=== PATIENT | male | born 1960 | race Caucasian/White ===

== ENCOUNTER 2017-05-30 05:49 | Emergency (ER) | payer SELFPAY ==
[~2017-05-30] VITALS: Ht 175.3 cm; Wt 77.1 kg
[~2017-05-30 05:49] MED LIST: ANTOXYBENA BOTHEARS; AZIT250 PO; CEPH250A PO; CEPH500 PO; CLIN300 PO; CLOT1TC TOP; CYCL10 PO; DESV50 PO; HYDACE5 PO; HYDACE5325 PO; IBUHYD PO; LIDO5TP TOP; MIRT15 PO; NAPR550 PO; OXYACE7.5T PO; PENVK500 PO; PRED20 PO; RANI150 PO; RXCEPH500 PO; RXHYD5325 PO; SULTRIDS PO; TRAM50 PO; [UNRECOGNIZED DRUG - OTHER] OT
[2017-05-30] MEDS ORDERED: CEPH500 PO (06:16)
== END 2017-05-30 06:23 | disposition home or self-care (01) ==
LOC: ER 05:49
DX: L03.011 Cellulitis of right finger (principal); F17.210 Nicotine dependence, cigarettes, uncomplicated
CPT/HCPCS: 99282

== ENCOUNTER 2017-10-24 01:25 | Emergency (ER) | payer MEDICAID ==
[~2017-10-24] VITALS: Ht 175.3 cm; Wt 81.7 kg
[2017-10-24] MEDS ORDERED: CEPH500 PO (02:48)
== END 2017-10-24 02:58 | disposition home or self-care (01) ==
LOC: ER 01:25
DX: M70.21 Olecranon bursitis, right elbow (principal); H61.21 Impacted cerumen, right ear; F17.210 Nicotine dependence, cigarettes, uncomplicated
CPT/HCPCS: 73080; 99283

== ENCOUNTER 2019-07-18 13:43 | Emergency (ER) | payer OTHER ==
[~2019-07-18] VITALS: Ht 175.3 cm; Wt 83.9 kg
[~2019-07-18 13:43] MED LIST changes: +IBUP400 PO
[2019-07-18] MEDS ORDERED: Triamcinolone A15 GM TOP (14:11)
== END 2019-07-18 14:22 | disposition home or self-care (01) ==
LOC: ER 13:43
DX: R21 Rash and other nonspecific skin eruption (principal); M41.9 Scoliosis, unspecified
CPT/HCPCS: 99282

== ENCOUNTER 2020-02-29 09:03 | Day surgery (SDC) | payer OTHER ==
[~2020-02-29] VITALS: Ht 175.3 cm; Wt 83.5 kg
[~2020-02-29 09:03] MED LIST changes: +Triamcinolone A15 GM TOP
--- NOTE | 2020-02-29 09:49 | NUR ---
02/29/20 0949 Marilee Paredes History, Chart, Medications and Allergies reviewed before start of procedure.PATIENT DETERMINED TO BE ASA APPROPRIATE FOR PROPOFOL SEDATION PRIOR TO START OF PROCEDURE BY .MONITOR INTACT WITH CONTINUOUS PULSE OXIMETRY AND INTERMITTENT BP.3-LEAD EKG REVIEWED WITH PHYSICIAN PRIOR TO START OF PROCEDURE.O2 VIA N/C INTACT THROUGHOUT SEDATION/PROCEDURE.
--- NOTE | 2020-02-29 10:40 | NUR ---
Patient up to Ambulate independently. Gait steady. Discharge instructions reviewed with patient. Patient verbalizes understanding. Copy given to patient to take home. Patient States Post-Procedure ride home has been arranged. Discharged via wheelchair to private car for ride home.
== END 2020-02-29 23:12 | disposition home or self-care (01) ==
LOC: ORSCMMR 09:03 → ORD 10:00 → ORSCMMR 10:00
PROVIDERS: Internal Medicine Gastroenterology
PROC: 0DBK8ZX Excision of Ascending Colon, Via Natural or Artificial Opening Endoscopic, Diagnostic (ICD-10-PCS; principal; 2020-02-29 10:00)
DX: Z12.11 Encounter for screening for malignant neoplasm of colon (principal); D12.2 Benign neoplasm of ascending colon; E78.00 Pure hypercholesterolemia, unspecified; Z87.891 Personal history of nicotine dependence; K57.30 Diverticulosis of large intestine without perforation or abscess without bleeding
CPT/HCPCS: 88305; J2704; J7120

== ENCOUNTER 2021-03-30 12:16 | Emergency (ER) | payer OTHER ==
[~2021-03-30] VITALS: Ht 175.3 cm; Wt 86.2 kg
== END 2021-03-30 13:46 | disposition home or self-care (01) ==
LOC: ER 12:16
DX: U07.1 COVID-19 (principal); Z87.891 Personal history of nicotine dependence
CPT/HCPCS: 99284

== ENCOUNTER 2023-12-09 01:15 | Observation (INO) | payer OTHER ==
[~2023-12-09] VITALS: Ht 175.3 cm; Wt 81.7 kg
[2023-12-09] MEDS ORDERED: FentaNYL Citrate 50 MCG/ML 2 ML Injection IV PRN (01:25)
[2023-12-09] MEDS ORDERED: Diphth,Pertuss(Acell),Tet Vac 0.5 ML VIAL IM ONE (01:40)
[2023-12-09] MEDS ORDERED: Bacitracin Zinc Oint 1GRAM UD Packet TOP ONE (01:40)
[2023-12-09 01:50] LABS: BASOPHILS ABSOLUTE AUTO 0.05 K/mm3 (0.00-0.23); BASOPHILS PERCENT AUTO 1 % (0-2); EOSINOPHILS ABSOLUTE AUTO 0.11 K/mm3 (0.00-0.68); EOSINOPHILS PERCENT AUTO 2 % (0-6); Hematocrit 41.5 % (37.0-53.0); Hemoglobin 13.4 g/dL (13.5-17.5); IMMATURE GRAN ABSOLUTE AUTO 0.04 K/mm3 (0.00-0.10); IMMATURE GRAN PERCENT AUTO 1 % (0-1); LYMPHOCYTES ABSOLUTE AUTO 1.97 K/mm3 (0.84-5.20); LYMPHOCYTES PERCENT AUTO 27 % (21-46); MONOCYTES ABSOLUTE AUTO 1.03 K/mm3 (0.16-1.47); MONOCYTES PERCENT AUTO 14 % (4-13); Mean Corpuscular HGB 28.8 pg (26.0-34.0); Mean Corpuscular HGB Conc 32.3 g/dL (31.5-36.5); Mean Corpuscular Volume 89 fL (80-100); Mean Platelet Volume 9.5 fL (9.1-12.4); NEUTROPHILS ABSOLUTE AUTO 4.24 K/mm3 (1.96-9.15); NEUTROPHILS PERCENT AUTO 57 % (41-73); Platelet Count 235 K/mm3 (150-400); RDW Coefficient Variation 15.6 % (11.7-14.2); RDW Standard Deviation 50.9 fL (35.1-46.3); Red Blood Cell Count 4.66 M/mm3 (4.30-5.90); White Blood Cell Count 7.44 K/mm3 (4.00-11.30)
[2023-12-09 01:55] LABS: Alanine Aminotransfer (ALT/SGP 31 U/L (12-78); Albumin, Blood 3.5 g/dL (3.4-5.0); Alk Phos 90 U/L (50-136); Anion Gap 14 mmol/L (3-11); Aspartate Aminotrans (AST/SGOT 25 U/L (12-37); Bilirubin, Total 0.4 mg/dL (0.1-1.0); Blood Urea Nitrogen 37 mg/dL (8-24); Bun/Creatinine Ratio 32.5 (12.0-20.0); CO2, Blood 24 mmol/L (21-32); Calcium, Blood 8.7 mg/dL (8.5-10.1); Chloride, Blood 111 mmol/L (98-108); Creatinine, Blood 1.14 mg/dL (0.60-1.20); Ethanol (Alcohol), Blood, Med <3 mg/dL; Globulin, Blood 3.6 g/dL (2.2-4.0); Glomerular Filtration Rate 73 (60-); Glucose, Blood 170 mg/dL (70-99); Potassium, Blood 4.8 mmol/L (3.5-5.5); Sodium, Blood 144 mmol/L (136-145); Total Protein, Blood 7.1 g/dL (6.4-8.2)
[2023-12-09] MEDS ORDERED: Propofol 10mg/ml 20 ml Vial (Procedural) IV SCH (02:05)
[2023-12-09] MEDS ORDERED: NS 1,000 ML IV SCH (02:10)
[2023-12-09] MEDS ORDERED: Ibuprofen600 MG PO (03:23)
[2023-12-09] MEDS ORDERED: Acetaminophen 325 MG TABLET PO PRN (11:30)
[2023-12-09] MEDS ORDERED: HYDROcodone 10-APAP 325 TAB PO PRN (11:30)
[2023-12-09 13:21] VITALS: BP 116/78
--- NOTE | 2023-12-09 16:08 | NUR ---
PT ARRIVED TO THE ROOM FROM ER AT APPROXIMATELY 1320. PT DROWSY BUT WAKES WHEN SPOKEN TO AND IS ORIENTED. PT EDUCATED TO USE THE CALL LIGHT. PT'S S/O IS AT THE BEDSIDE FOR SUPPORT. PT REPORTS INCREASED PAIN WITH MOVEMENT BUT FALLS ASLEEP WHEN LEFT TO REST. SKIN EXAMINED AND BEDBATH PROVIDED UPON ARRIVAL. DR. WHEELER NOTIFIED OF CONSULT.
[2023-12-09] MEDS ORDERED: HYDROcodone 5-APAP 325 TAB PO PRN (16:45)
--- NOTE | 2023-12-09 17:21 | NUR ---
Spiritual Care Visit Attempted. Pt. is solidly somnolent and not repsonsive when I caome to bedside. Will attempt again and remain available tothe Pt.
--- NOTE | 2023-12-09 18:41 | NUR ---
SHIFT SUMMARY PT ADMITTED THIS SHIFT. PAIN MANAGED WITH NORCO. PT DROWSY AND PLACED ON CONTINUOUS PULSE OX. DR. WHEELER CONSULTED, PLAN FOR PT TOMORROW. R KNEE IMMOBILIZER IN PLACE. CALL LIGHT WITHIN REACH.
[2023-12-09 19:13] VITALS: BP 126/76
--- NOTE | 2023-12-10 04:22 | NUR ---
SHIFT SUMMARY PT SLEPT T/O SHIFT. PAIN MANAGED PER EMAR. TOLERATING PO INTAKE. VOIDING. PT HAS IMMOBILIZER ON R LEG, AND SPLINT ON L ANKLE. PT ABLE TO WIGGLE TOES. VSS. NO OTHER CONCERNS AT THIS TIME, CALL LIGHT WITHIN REACH
[2023-12-10 04:41] VITALS: BP 118/78
[2023-12-10 04:55] LABS: BASOPHILS ABSOLUTE AUTO 0.03 K/mm3 (0.00-0.23); BASOPHILS PERCENT AUTO 0 % (0-2); EOSINOPHILS ABSOLUTE AUTO 0.08 K/mm3 (0.00-0.68); EOSINOPHILS PERCENT AUTO 1 % (0-6); Hematocrit 41.9 % (37.0-53.0); Hemoglobin 13.6 g/dL (13.5-17.5); IMMATURE GRAN ABSOLUTE AUTO 0.03 K/mm3 (0.00-0.10); IMMATURE GRAN PERCENT AUTO 0 % (0-1); LYMPHOCYTES ABSOLUTE AUTO 1.38 K/mm3 (0.84-5.20); LYMPHOCYTES PERCENT AUTO 17 % (21-46); MONOCYTES PERCENT AUTO 15 % (4-13); Mean Corpuscular HGB 28.8 pg (26.0-34.0); Mean Corpuscular HGB Conc 32.5 g/dL (31.5-36.5); Mean Corpuscular Volume 89 fL (80-100); Mean Platelet Volume 9.6 fL (9.1-12.4); NEUTROPHILS ABSOLUTE AUTO 5.55 K/mm3 (1.96-9.15); NEUTROPHILS PERCENT AUTO 67 % (41-73); Platelet Count 224 K/mm3 (150-400); RDW Coefficient Variation 15.9 % (11.7-14.2); RDW Standard Deviation 52.1 fL (35.1-46.3); Red Blood Cell Count 4.72 M/mm3 (4.30-5.90); White Blood Cell Count 8.27 K/mm3 (4.00-11.30)
[2023-12-10 05:24] LABS: Albumin/Globulin Ratio 0.8 (0.8-1.8); Bilirubin, Total 0.7 mg/dL (0.1-1.0); Bun/Creatinine Ratio 18.8 (12.0-20.0); Calcium, Blood 8.2 mg/dL (8.5-10.1); Creatinine, Blood 0.8 mg/dL (0.60-1.20); Globulin, Blood 3.6 g/dL (2.2-4.0); Total Protein, Blood 6.6 g/dL (6.4-8.2)
--- NOTE | 2023-12-10 05:36 | NUR ---
SHIFT SUMMARY POD 1 L TKA PT ABLE TO REST DURING THE NIGHT. PAIN MANAGED PER EMAR. TOLERATING PO INTAKE, VOIDING. DRESSING TO L KNEE IS AQUACEL AND SAMI WRAP, C/D/I. PT WORE 2L NC ALL NIGHT FOR SUPPORT. PT HAS BEEN ON 3 WALKS THIS SHIFT, 1P SBA WITH FWW AND GB. PT UP IN CHAIR THIS AM. VSS. PLAN FOR THERAPY THEN TO D/C HOME. NO OTHER CONCERNS AT THIS TIME, CALL LIGHT WITHIN REACH
[2023-12-10 07:05] VITALS: BP 117/84
[2023-12-10] MEDS ORDERED: Polyethylene Glycol 3350 17 gm PO PRN (08:10)
[2023-12-10] MEDS ORDERED: Enoxaparin 40 MG/0.4 ML SYR SC SCH (09:00)
--- NOTE | 2023-12-10 11:22 | NUR ---
Pt. is resting but responded when I came to his bedside. Pt. was somewhat somnolent but agreed to have this tack cutter pray for him. Pt. displayed evidence of being encouraged by the prayer. Will remain available to the Pt.
[2023-12-10 14:26] VITALS: BP 134/83
--- NOTE | 2023-12-10 15:56 | NUR ---
SHIFT SUMMARY PT DROWSY AND HAS RESTED IN BED WITH EYES CLOSED ALL SHIFT. AWAKENS APPROPRIATELY WITH VERBAL STIMULI AND STAYS AWAKE TO EAT HIS MEALS. PHYSICAL THERAPY WORKED WITH PT AND WAS UNABLE TO STAND PT--NEEDS LIFT ASSISTANCE. R KNEE IMMOBILIZER IN PLACE AND WBAT. LEFT ANKLE SPLINTED AND NWB. NORCO FOR PAIN PRN. CONT BIOX IN PLACE. USING URINAL TO VOID. CALL LIGHT WITHIN REACH.
[2023-12-10 20:05] VITALS: BP 118/81
--- NOTE | 2023-12-11 04:27 | NUR ---
SHIFT SUMMARY PT SLEPT FOR MOST OF SHIFT. PAIN MANAGED PER EMAR. TOLERATING PO INTAKE, VOIDING. VSS. NO OTHER CONCERNS AT THIS TIME, CALL LIGHT WITHIN REACH
[2023-12-11 05:03] VITALS: BP 133/91
[2023-12-11 06:57] VITALS: BP 135/84
[2023-12-11] MEDS ORDERED: FentaNYL Citrate 50 MCG/ML 2 ML Injection IV PRN (09:00)
[2023-12-11 14:21] VITALS: BP 141/86
--- NOTE | 2023-12-11 17:51 | NUR ---
SHIFT SUMMARY PT UP TO CHAIR AFTER WORKING WITH THERAPY USING LIDER BOARD, HE WAS ABLE TO USE THE SLIDER BOARD TO TRANSFER HIMSELF FROM BED TO CHAIR AND CHAIR TO COMMODE AND BACK AFTER HAVING A BM. NO ACUTE EVENTS THIS SHIFT, CALL LIGHT IN REACH.
[2023-12-11 19:21] VITALS: BP 133/84
--- NOTE | 2023-12-12 04:38 | NUR ---
SHIFT SUMMARY S/P R PATELLA FX AND L ANKLE DISLOCATION/ FIFTH METATARSAL FX. NO ACUTE CHANGES OVERNIGHT. VSS. TOLERATING ORALS. VOIDING IND. PT DID NOT AMBULATE OVERNIGHT. PER REPORT, PT CAN AMBULATE TO [facility] [place] USING SLIDE BOARD. RLE IN IMMOBILIZER AT KNEE, CAN BEAR WEIGHT AT TOLERATED. L ANKLE IN SPLINT/SAMI WRAP, NWB ON LLE. PT MEDICATED FOR PAIN PER EMAR, PT REPORTS TOLERABLE. CALL LIGHT IN REACH, BED IN LOWEST POSITION, WILL REPORT TO DAY RN.
[2023-12-12 05:14] VITALS: BP 126/73
[2023-12-12 07:37] VITALS: BP 98/66
[2023-12-12 14:27] VITALS: BP 129/70
--- NOTE | 2023-12-12 16:26 | NUR ---
SHIFT SUMMARY NO ACUTE CHANGES. PT UP TO CHAIR THIS AFTERNOON WITH THERAPY. RLE REMAINS IN IMMOBILIZER AND L ANKLE REMAINS SPLINTED. [place] FOR PAIN PRN. AWAITING FOR SNF ACCEPTANCE. PT USES CALL LIGHT APPROPRIATELY.
[2023-12-12 19:45] VITALS: BP 143/77
[2023-12-13 04:43] VITALS: BP 138/83
--- NOTE | 2023-12-13 05:55 | NUR ---
SHIFT SUMMARY S/P R PATELLA FX AND L ANKLE DISLOACTION/ FIFTH METATARSAL FX. NO ACUTE CHANGES OVERNIGHT. VSS. TOLERATING ORALS. USING URINAL IND. PT CAN USE SLIDEBOARD IND TO TRANSFER TO CHAIR. RLE IN IMMOBILIZER AT KNEE, CAN WEAR WEIGHT TOLERATED. L ANKLE IN SPLINT/ SAMI WRAP, NWB ON LLE. PT MEDICATED PER EMAR FOR PAIN x1, PT REPORTS TOLERABLE. ANTICIPATED DISCHARGE TO SNF. CALL LIGHT IN REACH, BED IN LOWEST POSITION, WILL REPORT TO DAY RN.
[2023-12-13 07:42] VITALS: BP 134/88
[2023-12-13] MEDS ORDERED: Cyclobenzaprine HCl 10 MG Tab PO PRN (17:15)
--- NOTE | 2023-12-13 18:47 | NUR ---
PT HAS BEEN STABLE THIS SHIFT. PT WORKED WELL WITH STAFF TO MOBILIZE TO WHEELCHAIR AND TO BATHROOM. VOIDING WELL. BM THIS AFTERNOON. NORCO EFFECTIVE FOR PAIN IN LEGS. STARTED ON FLEXERIL FOR CHRONIC BACK PAIN R/T HERNIATED DISKS. PT MOVES SELF WELL IN BED. ALIS DIET WELL. ENCOURAGED TO USE SPIROMETRY AND TCDB. PLAN FOR SNF AT DISCHARGE.
[2023-12-13 20:29] VITALS: BP 152/87
[2023-12-14 03:15] VITALS: BP 134/91
--- NOTE | 2023-12-14 07:12 | NUR ---
SHIFT SUMMARY PT WAS ALERT AND FULLY ORIENTED ON ASSESSMENT. PT STAYED IN BED TONIGHT, PAIN WELL MANAGED. PT MEDICALLY STABLE AWAITING SNF PLACEMENT. NO ACUTE EVENTS OR CHANGES TO PT CONDIITION TONIGHT.
[2023-12-14 07:14] VITALS: BP 132/87
[2023-12-14 17:07] VITALS: BP 147/95
[2023-12-14 19:08] VITALS: BP 132/72
--- NOTE | 2023-12-14 19:57 | NUR ---
SHIFT SUMMARY PAIN HAS BEEN MINIMAL THIS SHIFT AND MANAGED WITH NORCO. PT STATES HE IS ABLE TO REPOSITION HIMSELF, DECLINED ASSISTANCE. VSS. PLAN FOR SNF VS HOME TOMORROW. BEDSIDE REPORT GIVEN TO DWIGHT TIDWELL.
[2023-12-15 02:22] VITALS: BP 123/83
--- NOTE | 2023-12-15 04:42 | NUR ---
SHIFT SUMMARY ART WAS ALERT AND FULLY ORIENTED ON ASSESSMENT. PT ABLE TO STAND/PIV TO W/C FOR BR USE. NO NEW COMPLAINTS, ACUTE EVENTS OR CHANGES TO CONDITION NOTED. AWAITING DISCHARGE OR XFER TO SNF
[2023-12-15 06:56] VITALS: BP 129/67
[2023-12-15] MEDS ORDERED: ACET325 PO (11:23)
[2023-12-15] MEDS ORDERED: Norco 5-325 Ta1 EACH PO (11:24)
--- NOTE | 2023-12-15 12:59 | NUR ---
DISCHARGE PT AGREEABLE TO DC. DECLINED TO HAVE THIS RN CALL TO MAKE F/U w/ DR WHEELER. STRESSED IMPORTANCE OF F/U w/ PCP & ORTHO. RX SENT w/ PT & ANDREZARE INVOLVED w/ WC & SLIDER BOARD. TRANSPORTATION ARRANGED & ESCORTED OUT VIA PERSONAL WC.
== END 2023-12-15 12:55 | disposition home health service (06) ==
LOC: ER 01:15 → SURS 01:16
PROVIDERS: Emergency Medicine; ADMIT Hospitalist
DX: S82.001A Unspecified fracture of right patella, initial encounter for closed fracture (principal); S92.352A Displaced fracture of fifth metatarsal bone, left foot, initial encounter for closed fracture; S92.351A Displaced fracture of fifth metatarsal bone, right foot, initial encounter for closed fracture; S82.51XA Displaced fracture of medial malleolus of right tibia, initial encounter for closed fracture; M25.061 Hemarthrosis, right knee; V03.931A Pedestrian on standing electric scooter injured in collision with car, pick-up or van, unspecified whether traffic or nontraffic accident, initial encounter; E78.00 Pure hypercholesterolemia, unspecified; Z87.891 Personal history of nicotine dependence
CPT/HCPCS: 27840; 36415; 70450; 71260; 72125; 73562-RT; 73590; 73600; 73700; 74177; 80053; 80320; 85025; 86850; 86900; 86901; 90471; 90715; 94760; 96372; 96374-59; 96376; 97110; 97162; 97530; 99152; 99285-25; A9270; G0378; J1650; J2704; J3010; J7030; Q9967

== ENCOUNTER 2024-12-02 02:46 | Emergency (ER) | payer OTHER ==
[~2024-12-02] VITALS: Ht 182.9 cm; Wt 80.7 kg
[~2024-12-02 02:46] MED LIST changes: +ACET325 PO; +Ibuprofen600 MG PO; +Norco 5-325 Ta1 EACH PO
[2024-12-02] MEDS ORDERED: Tobramycin 0.3% Opth Soln 5 ML RIGHTEYE ONE (05:05)
[2024-12-02] MEDS ORDERED: TOBRADEX ST EYE5 M1 RIGHTEYE (05:07)
[2024-12-02 05:29] VITALS: BP 149/100
== END 2024-12-02 05:30 | disposition home or self-care (01) ==
LOC: ER 02:46
DX: H10.9 Unspecified conjunctivitis (principal); F19.10 Other psychoactive substance abuse, uncomplicated; Z87.891 Personal history of nicotine dependence; Z59.00 Homelessness unspecified
CPT/HCPCS: 99282; A9270